=== PATIENT | male | born 1950 | race Caucasian/White ===

== ENCOUNTER 2017-08-05 07:00 | Day surgery (SDC) | payer MEDICARE, OTHER ==
[~2017-08-05] VITALS: Ht 180.3 cm; Wt 92.5 kg
[~2017-08-05 07:00] MED LIST: ALEVE220 M1 PO; ASPIRIN EC81 MG PO; FINASTERIDE5 MG PO; NORCO 5-325 TA1 EACH PO; PROBIOTIC1 EAC1 PO; SIMVASTATIN40 MG PO; TUMS200 MG PO
--- NOTE | 2017-08-05 08:40 | NUR ---
PT MADE IT VERY APPARENT THAT HE DID NOT WANT ME IN HIS RM.IN HIS WORDS, "I AM NOT INTERESTED IN SPIRITUAL CARE". SO I EXTENDED A BLESSING AND LEFT HIS RM
--- NOTE | 2017-08-05 09:03 | NUR ---
0830 UP TO BR. DENIES NEED FOR WARM BLANKET. IV PATENT. SCDS ON.
--- NOTE | 2017-08-05 10:30 | NUR ---
08/05/17 1030 Jarek Kirby RESPONDS TO TAP AND VOICE AT 1029. OPA REMOVED PT REACHES TO MOUTH. ATTEMPTING TO REORIENT TO TIME AND SITUATION. FALLS ASLEEP VERY EASILY AND CANT ANSWER QUESTIONS YET.
[2017-08-05] MEDS ORDERED: NORCO 5-325 TA1 EACH PO (10:59)
--- NOTE | 2017-08-05 13:01 | NUR ---
TOOK PO WELL, WATER CRACKERS BOWL OF SOUP. AMB WELL IN ROOM. DENIES NEED TO VOID. RATES PAIN 0/10. ENC PAIN MEDICINE, DECLINES.
--- NOTE | 2017-08-05 21:51 | OR ---
[facility] [address], [place] [address] Signed DATE OF OPERATION: 08/05/2017 SURGEON: Fior De La Paz MD PREOPERATIVE DIAGNOSIS: Left inguinal hernia. POSTOPERATIVE DIAGNOSIS: Reducible left indirect sliding inguinal hernia. PROCEDURE: Left Erica Onlay mesh inguinal herniorrhaphy. ESTIMATED BLOOD LOSS: NONE. INDICATIONS: Flavia is a 67-year-old gentleman, who is now a retired forester. I have actually known Flavia for a number of years. Last year, he noticed pain and swelling in his left groin. The last couple months that doubled in size was causing him significantly increase in pain. He said it is always a 5 to a 6/10 on most days. He often has to leave his shot go back in the house to lie down and push the hernias back inside. He went to his primary care provider, who diagnosed him with his left inguinal hernia. He was then asked to see me with respect to the above. I met with Flavia and his in the office. I had given him a brochure on hernias. We looked at that together in detail. Flavia understands the nature of an inguinal hernia along with a difference between the primary suture repair and a mesh repair. We also discussed the risks including, but not limited to bleeding, infection, scarring, change in contour of the skin, damage to the nerves, ischemic orchitis, recurrent hernias, and chronic pain. He understands expected intraop and postop course. He had expressed understanding and wished to proceed. PROCEDURE NOTE: I met with Flavia and his in our preop area. We all agreed it was the left groin and we marked that appropriately. After this, Flavia was taken into our operating room and placed in the supine position under general endotracheal tube anesthesia. He was given preoperative antibiotics along with subcutaneous heparin. SCDs were utilized. He was then prepped and draped in the usual sterile fashion. A standard oblique incision was made in his left groin and carried down through the tissue bluntly with the cautery. The external oblique fascia was opened along its length and developed medially and laterally. The ilioinguinal iliohypogastric nerves were visualized and protected Electronically Signed By: FIOR DE LA PAZ MD 08/05/17 2151 PATIENT NAME: FLAVIA MATTHEW OPERATIVE REPORT DATE OF : 52 PHYSICIAN: FIOR DE LA PAZ MD REPORT #: [id number] REPORT IS CONFIDENTIAL AND NOT TO BE RELEASED WITHOUT AUTHORIZATION [facility] [address], [place] [address] Signed throughout the case. The cord structures were elevated at the level of pubic tubercle with the help of a Gilchrist drain. The direct space was intact. We could easily see a moderate-sized hernia coming through the deep ring. It took just a few minutes to separate the very thin hernia sac from the cord structures. There was also a small cord lipoma coming through the deep ring as well. It was suture ligated at its neck, amputated, and passed off the field. I then opened this very thin hernia sac and looked inside and sure enough it contained the sigmoid colon. In fact, this is a sliding indirect inguinal hernia. It took a few minutes to reduce some of the fat around the colon. However, the colon would not reduce as it made up part of the wall of the hernia sac. Consequently, I sutured the hernia sac closed and we reduced the hernia sac in with the sigmoid colon. The deep ring was a bit patulous. A centimeter half maybe 2 cm at most in diameter. Consequently, I used a #1 PDS suture in a [id number] fashion and I brought the tissue together gently to close down the deep ring, much like a Shayla repair. At this point, I could just insert the tip of my index finger next to the cord structures at the level of deep ring. After this, we cut our mesh to fit his groin and we made a slit in the mesh to accommodate the cord structures at the level of deep ring. The mesh was held in place medially and laterally with help of running #1 Prolene suture. We checked the cord structures once again the deep ring and there was no undue tension of the mesh around the cord structures. After this, local anesthetic was copiously injected into the wound. The wound was irrigated and suctioned out until clear. The external oblique fascia was then closed over the repair with a running 2-0 PDS suture. Kiley's fascia was reapproximated in a running 3-0 Monocryl suture. The dermis was reapproximated with interrupted 3-0 subcuticular Monocryl sutures. The skin edges were reapproximated with a running 6-0 fast absorbing plain gut suture. Dry gauze and tape were then applied. Flavia was then awakened from his anesthesia, extubated in the OR, taken to recovery room in stable condition. Fior De La Paz MD ALB/MODL /[id number] cc: Becki Bowen MD Electronically Signed By: FIOR DE LA PAZ MD 08/05/17 2151 PATIENT NAME: FLAVIA MATTHEW OPERATIVE REPORT DATE OF : 52 PHYSICIAN: FIOR DE LA PAZ MD REPORT #: [id number] REPORT IS CONFIDENTIAL AND NOT TO BE RELEASED WITHOUT AUTHORIZATION [address] [address] Signed Fior De La Paz MD Electronically Signed By: FIOR DE LA PAZ MD 08/05/17 215 PATIENT NAME: FLAVIA MATTHEW OPERATIVE REPORT DATE OF : 52 PHYSICIAN: FIOR DE LA PAZ MD REPORT #: [id number] REPORT IS CONFIDENTIAL AND NOT TO BE RELEASED WITHOUT AUTHORIZATION
== END 2017-08-05 12:30 | disposition home or self-care (01) ==
LOC: DS 07:00
PROVIDERS: Colon & Rectal Surgery
PROC: 0YU60JZ Supplement Left Inguinal Region with Synthetic Substitute, Open Approach (ICD-10-PCS; principal; 2017-08-05 08:00)
DX: K40.90 Unilateral inguinal hernia, without obstruction or gangrene, not specified as recurrent (principal); E78.5 Hyperlipidemia, unspecified; M19.90 Unspecified osteoarthritis, unspecified site; K58.9 Irritable bowel syndrome, unspecified; N40.1 Benign prostatic hyperplasia with lower urinary tract symptoms; N13.8 Other obstructive and reflux uropathy; Z98.41 Cataract extraction status, right eye; Z87.442 Personal history of urinary calculi; Z98.42 Cataract extraction status, left eye; Z98.52 Vasectomy status; Z88.0 Allergy status to penicillin; Z79.899 Other long term (current) drug therapy; Z98.890 Other specified postprocedural states
CPT/HCPCS: 00830; C1781; J0330; J1100; J1644; J1885; J2250; J2405; J2704; J2765; J3010; J7120

== ENCOUNTER 2017-10-13 07:47 | Day surgery (SDC) | payer MEDICARE, OTHER ==
[~2017-10-13] VITALS: Ht 180.3 cm; Wt 99.3 kg
[2017-10-13] MEDS ORDERED: ONCE DAILY1 EACH PO (08:13)
[2017-10-13] MEDS ORDERED: ASPIR-LOW81 MG PO (08:13)
[2017-10-13] MEDS ORDERED: LUTEIN-ZEAXANT1 EACH PO (08:13)
--- NOTE | 2017-10-13 09:41 | NUR ---
10/13/17 0941 Hanny Abernathy 0862 PATIENT ARRIVES TO PACU SLEEPING, WAKES UP WITH VERBAL STIMULI, DENIES PAIN OR NAUSEA, THEN BACK TO SLEEP. RESP EVEN AND UNLABORED, NC AT 3 LITERS.
--- NOTE | 2017-10-13 10:41 | OR ---
[facility] [address], [place] [address] Signed DATE OF OPERATION: 10/13/2017 SURGEON: Fior Oneil MD PREOPERATIVE DIAGNOSES: 1. Change in bowel habits with increased flatus and softer gooey stool. 2. Internal anal skin tags. 3. Irritable bowel syndrome. POSTOPERATIVE DIAGNOSES: 1. A 5 mm cecal polyp. 2. A 4 mm polyp at 25 cm. 3. Sigmoid diverticula x2. 4. Small internal anal skin tags. PROCEDURE: Colonoscopy with hot biopsy. ESTIMATED BLOOD LOSS: None. INDICATIONS: Flavia is a 67-year-old gentleman, who had a colonoscopy in 2007. He did have some internal anal skin tags. No family history of colon cancer or polyps. However, he said he had a change in bowel habits with increased flatus and softer stool. He was wonder if he might have a fissure or fistula tract as well. In the office, I gave him a pamphlet on colonoscopy. We looked at that together along with the risks including, but not limited to gas, bloating, crampy abdominal pain, bleeding, perforation, requiring surgery, and missed diagnosis. He also understands the need for IV conscious sedation. He had expressed understanding and wished to proceed. PROCEDURE NOTE: Flavia was taken into our endoscopy suite and placed in the left lateral decubitus position. He was given IV sedation with 7 mg of Versed and 100 mcg of fentanyl. A digital rectal exam was performed and this was unremarkable. The adult colonoscope was introduced and advanced under direct visualization of camera without difficulty. His prep was good. The scope was then slowly withdrawn. We saw a small polypoid lesion just to the side of the appendiceal orifice. We went ahead and biopsied and destroyed it completely with the hot biopsy forceps. The scope was withdrawn further and we saw just a couple of diverticula in the sigmoid colon and then we encountered a tiny polyp Electronically Signed By: FIOR ONEIL MD 10/13/17 1041 PATIENT NAME: FLAVIA MATTHEW OPERATIVE REPORT DATE OF : 52 REPORT #: [id number] PHYSICIAN: FIOR ONEIL MD PCP: Becki BACON MD REPORT IS CONFIDENTIAL AND NOT TO BE RELEASED WITHOUT AUTHORIZATION [facility] [address], [place] [address] Signed at 25 cm, which we removed with hot biopsy forceps. The rectum was unremarkable. Upon retroflexion of the scope, he has some tiny internal hemorrhoid tissue and some skin tags. After this, the gas was suctioned out. The colonoscope removed. Flavia tolerated the procedure quite well. RECOMMENDATIONS: Flavia to follow up in my office in 7 to 14 days to review his results. Fior Oneil MD ALB/MODL /[id number] cc: MD Fior Gamboa MD Copies: Becki BACON MD, ANDREW L MD ~ Electronically Signed By: FIOR ONEIL MD 10/13/17 1041 PATIENT NAME: FLAVIA MATTHEW RACHEAL OPERATIVE REPORT DATE OF : 52 REPORT #: [id number] PHYSICIAN: FIOR ONEIL MD PCP: Becki BACON MD REPORT IS CONFIDENTIAL AND NOT TO BE RELEASED WITHOUT AUTHORIZATION
== END 2017-10-13 10:20 | disposition home or self-care (01) ==
LOC: DS 07:47 → OPS 07:47 → DS 09:00 → OPS 09:00
PROVIDERS: Colon & Rectal Surgery
PROC: 0DBE8ZX Excision of Large Intestine, Via Natural or Artificial Opening Endoscopic, Diagnostic (ICD-10-PCS; 2017-10-13)
PROC: 0DBH8ZX Excision of Cecum, Via Natural or Artificial Opening Endoscopic, Diagnostic (ICD-10-PCS; principal; 2017-10-13 09:00)
DX: K63.5 Polyp of colon (principal); K57.30 Diverticulosis of large intestine without perforation or abscess without bleeding; K64.8 Other hemorrhoids; J30.9 Allergic rhinitis, unspecified; K58.9 Irritable bowel syndrome, unspecified; E78.5 Hyperlipidemia, unspecified; M19.049 Primary osteoarthritis, unspecified hand; Z98.890 Other specified postprocedural states; Z98.41 Cataract extraction status, right eye; Z98.42 Cataract extraction status, left eye; Z98.52 Vasectomy status; Z87.442 Personal history of urinary calculi; Z88.0 Allergy status to penicillin; Z79.82 Long term (current) use of aspirin; Z79.899 Other long term (current) drug therapy; Z90.79 Acquired absence of other genital organ(s)
CPT/HCPCS: 88305; 99153; G0500; J2250; J3010; J7120

== ENCOUNTER 2021-02-24 20:05 | Emergency (ER) | payer MEDICARE, OTHER ==
[~2021-02-24] VITALS: Ht 180.3 cm; Wt 90.7 kg
[~2021-02-24 20:05] MED LIST changes: +ASPIR-LOW81 MG PO; +LUTEIN-ZEAXANT1 EACH PO; +ONCE DAILY1 EACH PO
[2021-02-24] MEDS ORDERED: FLOMAX0.4 MG PO (22:24)
[2021-02-24] MEDS ORDERED: IBU600 MG PO (22:24)
== END 2021-02-24 22:42 | disposition home or self-care (01) ==
LOC: ED 20:05
DX: N13.2 Hydronephrosis with renal and ureteral calculous obstruction (principal); I10 Essential (primary) hypertension; Z88.0 Allergy status to penicillin; Z88.8 Allergy status to other drugs, medicaments and biological substances; Z79.899 Other long term (current) drug therapy
CPT/HCPCS: 74176; 80053; 81001; 83690; 85025; 96374; 99284-25; J1885

== ENCOUNTER 2023-03-02 06:55 | Day surgery (SDC) | payer MEDICARE, OTHER | END 2023-03-02 13:15 | disposition home or self-care (01) | LOC: DS 06:55 | PROC: 0YQ50ZZ Repair Right Inguinal Region, Open Approach (ICD-10-PCS; principal; 2023-03-02) | DX: K40.90 Unilateral inguinal hernia, without obstruction or gangrene, not specified as recurrent (principal); Z88.0 Allergy status to penicillin; E78.5 Hyperlipidemia, unspecified ==